=== PATIENT | female | born 1960 | race Caucasian/White ===

== ENCOUNTER 2018-04-22 14:30 | Outpatient (RCR) | payer OTHER, SELFPAY ==
--- NOTE | 2018-03-19 16:22 | HP.PTEVAL_ITS ---
Patient's Visit Information ARAM BURGER is a 57 year old F referred to Physical Therapy by Flavia Munoz with a diagnosis of Lumbar DDD. Date of Evaluation: 03/19/18 Physical Therapist: Nick Bentley PT, - Visit Plan Frequency: 1x/Week Duration: 4 Weeks Plan: Start with REIL, progress forces as pt tolerates. Postural strengthening and quality assurance monitor body training once symptoms less irritable. Manual therapy to improve extension ROM. Modalities for pain prn. - Subjective Subjective: This 57 y/o female presents to physical therapy with low back pain .Pt with 3 month history of LBP. This has worsened significantly over the past month. When this started, she noted that she was sitting and bending over more during this time. She reports symptoms in the low back and down B posterior hips and groin region. B hip and groin pain just started about a week ago. She describes the low back symptoms as shooting, and cramping in the LE's. She has had primary care coordinator at the start of minimal benefits. Pain is worse in the morning also. Aggrevating factors: sitting, bending. Easing: inversion table, standing and walking. ROS: Denies n/t in LE's, denies b/b incontinence. - Pain low back Pain Intensity (Out of 10): 5 B hips Pain Intensity (Out of 10): 5 - Objective OBSERVATION: flexed posture in sitting, appears anxious about condition. ROM: Lumbar flexion 50%, extension 50%, B LF 75%. NEURO: dermatomes intact, myotomes intact, L3 DTR 2+. ASSESSORY: L5 Hypomobile and painful PAIVM. GAIT: normal megha. MMT: 4/5 quads/hams /hip ankle. SYMMPTRIES: alighn. PALPATION : unremarkable. SYMMTRIES: alighn - Special Tests Lumbar Standing: Flexion - Mechanical Response: No effect Lumbar Standing: Flexion - Symptoms During Testing: Increases Lumbar Standing: Flexion - Symptoms After Testing: No worse Lumbar Standing: Extension - Mechanical Response: No effect Lumbar Standing: Extension - Symptoms During Testing: Centralizing Lumbar Standing: Extension - Symptoms After Testing: Centralized Lumbar Lying: Extension - Mechanical Response: Increases motion Lumbar Lying: Extension - Symptoms During Testing: Centralizing Lumbar Lying: Extension - Symptoms After Testing: Better - Goals Goal 1:: Pt will be independent with HEP to sustain gains made in the clinic. Goal Time Frame: 4-6 Weeks Goal 2:: Pt will demonstrate full lumbar ROM to improve tolerance with ADLs. Goal Time Frame: 4-6 Weeks Goal 3:: Pt will demonstrate squat and golfer's lift to demonstrate knowledge of proper body mechanics. Goal Time Frame: 4-6 Weeks Goal 4:: Pt will demonstrate proper sitting posture without cues. Goal Time Frame: 4-6 Weeks Goal 5:: Pt will report at least 50% improvement on JUSTYN to demonstrate improvement in function and QOL. Goal Time Frame: 4-6 Weeks - Rehabilitation Potential Physical Therapy Diagnosis: Pt is 57 y/o female with referral of lumbar DDD. She has 3 month history of low back pain with worsening of symptoms about a month ago. 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 Direction of preference appears to be unloaded extension. Pt with activity limitations that include difficulty with prolonged sitting, inability to lift, and decreased sleeping tolerance. This affects her participation with work related activities. She does exhibit fear avoiding behaviors and she was provided with education to address this. Pt will benefit from skilled PT to address her impairments and maxmize functional potential. Rehabilitation Potential: Excellent - Anticipated Interventions Patient/Client Instruction: Educate patient on: Condition, Plan of Care For the Purpose of:: To decrease pain, To increase ROM, To improve muscle performance and motor function, To increase tolerance to activity/condition/ position, To improve ability of physical actions for home/community/work/leisure , To improve health of tissue, To decrease soft tissue restriction, To increase flexibility/ROM, To reduce risk of recurrence, To improve health and function, To improve self management, To prevent re-injury Therapeutic Exercise to Include: Strength training, Endurance training, Body mechanics, Postural training, Flexibilty training, Active ROM, Dynamic Lumbar Stabilization, Augie Exercises For the Purpose of:: To decrease pain, To increase ROM, To improve muscle performance and motor function, To increase tolerance to activity/condition/ position, To improve ability of physical actions for home/community/work/leisure , To improve health of tissue, To decrease soft tissue restriction, To increase flexibility/ROM, To reduce risk of recurrence, To improve self management, To prevent re-injury Manual Therapy Techniques to Include: Mobilization, Soft tissue mobilization For the Purpose of:: To decrease pain, To increase ROM, To improve muscle performance and motor function, To increase tolerance to activity/condition/ position, To improve ability of physical actions for home/community/work/leisure , To improve health of tissue, To increase flexibility/ROM, To reduce risk of recurrence, To prevent re-injury TENS: Yes IF ES: Yes Cryotherapy (ice pack, ice massage): Yes Thermo therapy (hot pack): Yes Ultrasound (thermal/non thermal): Yes For the Purpose of:: To decrease pain, To increase ROM, To improve muscle performance and motor function, To increase tolerance to activity/condition/ position, To improve ability of physical actions for home/community/work/leisure , To decrease soft tissue restriction, To increase flexibility/ROM Thank you for the opportunity to evaluate your patient. For Medicare and Medicare HMO plans, please review the plan of care and approve it. It will need to be FAXED BACK to us at [phone] for Medicare purposes. Please let me know if there are questions or concerns regarding this plan of care. Physician Signature: Date:
--- NOTE | 2018-07-04 13:37 | HP.PTDCSUM ---
HP - PT D/C Summary It has been my pleasure to treat ARAM BURGER under orders from Flavia Munoz, for the diagnosis of Lumbar DDD for a total of 6 visit(s). Discharge Date: Please see the following information for a summary of their discharge status. - Subjective Subjective: Patient reports seeing DR planning for MRI. Pain same symmtrical across lumnar - Pain low back Pain Intensity (Out of 10): 5 B hips Pain Intensity (Out of 10): 3 - Overall Improvement % Improvement: 50 - Objective Objective/Function: POSTURE: wfl. GAIT: normal megha. NEURO: denies parathesia/tingling,REDFLEXES 2/3. MMT: quads/hams 4/5 ,hip 4-5/. LUMBAR ROM: flexion mod loss,extension min-mod loss - Goals Goal 1:: Pt will be independent with HEP to sustain gains made in the clinic. Goal Progress: Progressing Goal 2:: Pt will demonstrate full lumbar ROM to improve tolerance with ADLs. Goal Progress: Progressing Goal 3:: Pt will demonstrate squat and golfer's lift to demonstrate knowledge of proper body mechanics. Goal Progress: Progressing Goal 4:: Pt will demonstrate proper sitting posture without cues. Goal Progress: Progressing Goal 5:: Pt will report at least 50% improvement on JUSTYN to demonstrate improvement in function and QOL. Goal Progress: Progressing - Plan Plan: RECOMMNEND MRI PER MD - D/C Information If there are questions or concerns regarding this patient's physical therapy, please feel free to call me at [phone]. Thank you for the referral of this patient. Sincerely, Nick Bentley, PT,
== END 2018-04-22 19:00 | disposition home or self-care (01) ==
LOC: PT 14:30
PROVIDERS: Family Provider Family Medicine; PCP Family Medicine; Visit Provider Family Medicine
DX: M51.36 Other intervertebral disc degeneration, lumbar region (principal)
CPT/HCPCS: 97014; 97035; 97110; 97162; 97530; G0283

== ENCOUNTER → 2018-06-11 14:43 | Outpatient (CLI) | payer OTHER, SELFPAY ==
--- NOTE | 2018-06-11 14:45 | BI_ITS ---
MAMMOGRAPHY - BILATERAL SCREENING REASON FOR EXAM: Female, 57 years old. Routine annual screening examination. PERTINENT HISTORY: Non-contributory. TECHNIQUE: Digital bilateral breast jaime (3D mammographic acquisition) in the CC and MLO projections. 2-D mediolateral oblique (MLO) and craniocaudad (CC) views of both breasts were obtained. CAD: Full Field Digital Mammography with Computer Added Detection was performed. COMPARISON: Comparison made with the prior outside examination dated December 04, 2008. FINDINGS: Breast Composition: The breasts are heterogeneously dense, which may obscure small masses. There are no dominant masses or suspicious calcifications. Stable benign-appearing bilateral axillary lymph nodes. No other significant abnormalities are identified. There has been no significant change since the prior study. BI/SCREENING MAMM (CAD), BILAT IMPRESSION: Stable bilateral screening mammogram. Yearly follow-up mammogram recommended. (A) ASSESSMENT CATEGORY: BIRADS Category 2: Benign. A letter regarding these results will be sent to the patient by the facility within 30 days. Approximately 10% of breast cancers are not detected by mammography. A normal mammogram should not delay biopsy of a clinically suspicious abnormality. [id number] Electronically Signed: Saad Piedra MD at 14:04 EDT Tel [phone], Service support ,
== END ==
PROVIDERS: Family Provider Family Medicine; PCP Family Medicine; Visit Provider Family Medicine
DX: Z12.31 Encounter for screening mammogram for malignant neoplasm of breast (principal)
CPT/HCPCS: 77063; 77067

== ENCOUNTER 2018-07-24 20:30 | Emergency (ER) | payer OTHER, SELFPAY ==
[2018-07-24 20:31] VITALS: BP 137/83; PULSE 89; RESP 18; TEMP 36.6; O2SAT 100; BMI 26.6
--- NOTE | 2018-07-24 20:48 | ED.DCSUM_ITS ---
- ER Visit Summary Date of Service: 07/24/18 Chief Complaint: Nausea, lightheadedness History of Present Illness: The patient is a 57 F presents to the emergency department with nausea and lightheadedness. The patient states that they have been doing a lot of construction on the sores outside of her house. She states today, she began to feel increasing fatigue. States yesterday, she had very mild symptoms but today worsened. She was feeling lightheaded and nauseated. She denies any vomiting. She denies any visual change. She denies any numbness or tingling. She states she was the only one home and she is dealing with symptoms. She states her family got home, they were complaining of a smell in the house but she did not notice. Physical Examination: Vital signs reviewed General: Well-nourished, well-developed Head: Normocephalic, atraumatic Eyes: Pupils equal and reactive, extraocular muscles intact Neck, supple, no lymphadenopathy Heart: Regular rate and rhythm Respiratory: No distress, clear bilaterally Abdomen: Soft, nontender, nondistended, no peritoneal signs Back: Nontender Extremities: Nontender, no edema, no cords Skin: Normal color no rash Neuro: Alert and oriented, no focal or lateralizing deficits Test Results: [] Emergency Department Course and Treatment: The patient has no evidence of dangerous toxidrome. Her vitals are unremarkable. IV was established. Patient was given fluids and Zofran. I did obtain screening labs are unremarkable. Her carbon monoxide level was mildly elevated, but the patient is a smoker. It is at the normal level for that. There is no one else at home that is sick. At this time, I do feel that this is more of a noxious exposure than anything dangerous. The patient will be discharged home. They are not going to be staying in the house while this construction is going on from the time being. Treatment Plan: [] Disposition: Discharge Impression: 1. Nausea 2. Chemical inhalation This note was generated with [employer] dictation software. It may contain incorrect words, spelling, and punctuation that were not noted in review of the chart prior to signing ED Disposition - Plan for ED Patient: Chief Complaint: General Illness Instructions: ED Inhalation Chemical Referrals: Flavia Munoz [Primary Care Provider] -
[2018-07-24] MEDS: Ondansetron 4 MG/2 ML Vial IV (20:59)
[2018-07-24] MEDS: 0.9% Normal Saline 1,000 ML 1000 ML IV (20:59)
[2018-07-24 21:13] LABS: Absolute Lymphocyte Count 3.21 X10^3/ul (0.83-4.51); Absolute Neutrophil Count 2.5 X10^3/uL (2.0-7.7); Basophil# 0.05 X10^3/uL; Basophil% 0.8 % (0-1); Eosinophil# 0.19 X10^3/uL; Eosinophils% 2.9 % (0-5); Hematocrit 42.4 % (37-47); Hemoglobin 14.2 g/dl (12.0-15.0); Lymphocyte # 3.21 X10^3/ul (4.0); Lymphocyte % 49.6 % (19-41); Mean Corp Hgb Conc 33.5 g/gl (32-36); Mean Corpuscular Hgb 31.6 pg (27.0-32.0); Mean Corpuscular Volume 94.4 fL (81-99); Mean Platelet Vol. 11.3 fl (6.2-12.0); Monocyte# 0.49 X10^3/uL; Monocyte% 7.6 % (0-10); Neutrophil # 2.53 X10^3/uL (2.7-7.7); Neutrophil % 39.1 % (47-70); Platelet Count 194 K/mm3 (150-450); RBC Distribution Width CV 12.3 % (11.6-14.6); RBC Distribution Width SD 41.9 fl (35.1-43.9); Red Blood Count 4.49 M/mm3 (4.2-5.4); White Blood Count 6.5 K/mm3 (4.4-11.0)
[2018-07-24 21:16] LABS: POSITIVE COUNT NO; POSITIVE DIFFERENTIAL NO; POSITIVE MORPHOLOGY NO
[2018-07-24 21:24] LABS: BUN 13 mg/dL (7-18); Glucose 91 mg/dL (74-106)
[2018-07-24 21:25] LABS: AST(SGOT) 14 U/L (15-37); Alanine Aminotransfer ALT/SGPT 26 U/L (13-56); Albumin, Serum 3.7 g/dL (3.2-5.0); Alkaline Phosphatase 109 U/L (45-117); Anion Gap 6 (5-15); BUN/Creat Ratio 14.3 RATIO (10-20); Calcium,Total 8.4 mg/dL (8.5-10.1); Chloride 107 mmol/L (98-107); Creatinine, Serum 0.91 mg/dL (0.55-1.02); EST Glomerular Filtration Rate 68 mL/min (>60); Est Glom Filt Rate - Afr Amer 82 mL/min (>60); Estimated Creatinine Clearance 60.32 ml/min; Globulin 3.6 g/dL (2.2-4.2); Potassium 3.8 mmol/L (3.5-5.1); Protein, Total 7.3 g/dL (6.4-8.2); Sodium Level 141 mmol/L (136-145)
[2018-07-24 21:45] LABS: Carboxyhemoglobin Frac (CO) 5.2 % (0.0-1.5)
[2018-07-24 22:14] VITALS: BP 130/80; PULSE 66; RESP 18; O2SAT 97
== END 2018-07-24 22:14 | disposition home or self-care (01) ==
LOC: ED 20:49
PROVIDERS: Emergency Provider Emergency Medicine; Family Provider Family Medicine; PCP Family Medicine
DX: T59.91XA Toxic effect of unspecified gases, fumes and vapors, accidental (unintentional), initial encounter (principal); R11.0 Nausea; F17.200 Nicotine dependence, unspecified, uncomplicated; Y92.008 Other place in unspecified non-institutional (private) residence as the place of occurrence of the external cause
CPT/HCPCS: 80053; 82375; 85025; 96361; 96374; 99283; J7030; J2405